=== PATIENT | female | born 1955 | race American Indian/Alaskan Native ===

== ENCOUNTER 2018-07-29 07:59 | Outpatient (CLI) | payer SELFPAY ==
--- NOTE | 2018-07-29 10:01 | Mammography Report ---
Right mammogram colon compared to 04/22/16. CAD study utilized. Findings: Predominance adipose tissue bilaterally. No mass or microcalcification. Normal axilla. Impression: Benign findings. Annual followup recommended. BI-RADS CATEGORY: 2 = Benign ACR BI-RADS MAMMOGRAPHIC CODES: 0 = Needs additional imaging evaluation; 1 = Negative; 2 = Benign; 3 = Probably benign; 4 = Suspicious; 5 = Malignant; 6 = Known biopsy-proven malignancy COMMENT: 1. Dense breast tissue, i.e., adenosis, fibrocystic changes, etc., may obscure an underlying neoplasm. 2. Approximately 10% of cancers are not detected with mammography. 3. A negative mammography report should not delay biopsy if a clinically suspicious mass is present.
== END 2018-07-29 08:00 | disposition home or self-care (01) ==
LOC: SPVWC 07:59
PROVIDERS: ATTEND Internal Medicine
DX: Z12.31 Encounter for screening mammogram for malignant neoplasm of breast (principal)

== ENCOUNTER 2019-07-05 12:24 | Outpatient (CLI) | payer MEDICARE ==
--- NOTE | 2019-07-05 13:43 | Mammography Report ---
DIGITAL DIAGNOSTIC MAMMOGRAM WITHOUT CAD, -- 07/05/2019 INDICATION: Recall for asymmetry. TECHNIQUE: Digital right mammographic imaging was performed. This examination was interpreted with the benefit of Computer-aided Detection analysis. COMPARISON: 06/22/2019 FINDINGS: Breast Density: There are scattered fibroglandular densities. Additional right mammographic views were performed and are negative. IMPRESSION: No mammographic evidence of malignancy. Follow up recommendation: Routine yearly BI-RADS Category 1: Negative. A "normal" or negative report should not discourage follow up or biopsy of a clinically significant f inding. A written summary of these findings will be mailed to the patient. The patient will be entered into a mammography reporting system which will generate a reminder letter for the patient's next appointmen t at the appropriate interval. According to the [employer], yearly mammograms are recommended starting at age 40 and continuing as long as a woman is in good health. Breast MRI is recommended for women with an rajan roximately 20-25% or greater lifetime risk of breast cancer, including women with a strong family his tory of breast or ovarian cancer and women who have been treated for Hodgkin's disease. Signer Name: Per Frias MD Signed: 07/05/2019 1:38 PM Workstation Name: [id number]
== END 2019-07-05 12:25 | disposition home or self-care (01) ==
LOC: MAMMO 12:24
PROVIDERS: ATTEND Obstetrics & Gynecology
DX: C50.919 Malignant neoplasm of unspecified site of unspecified female breast (principal); N64.89 Other specified disorders of breast; R92.8 Other abnormal and inconclusive findings on diagnostic imaging of breast

== ENCOUNTER 2021-07-26 14:06 | Outpatient (CLI) | payer MEDICARE ==
--- NOTE | 2021-07-27 11:33 | Mammography Report ---
DIGITAL SCREENING MAMMOGRAM WITH CAD, 07/26/2021 CLINICAL INFORMATION / INDICATION: Routine screening mammography. SCREENING MAMMO Z12.31 TECHNIQUE: Digital right 2D mammography was obtained in the craniocaudal and mediolateral oblique pr ojections. This examination was interpreted with the benefit of Computer-Aided Detection analysis. COMPARISON: 06/26/2020 FINDINGS: Breast Density: There are scattered areas of fibroglandular density. No dominant mass, suspicious calcifications, or architectural distortion in either breast. IMPRESSION: No mammographic evidence of malignancy. Follow up recommendation: Routine yearly BI-RADS Category 1: Negative. A "normal" or negative report should not discourage follow up or biopsy of a clinically significant f inding. A written summary of these findings will be mailed to the patient. The patient will be entered into a mammography reporting system which will generate a reminder letter for the patient's next appointmen t at the appropriate interval. The [employer] recommends yearly mammograms starting at age 40 and continuing as l anthony as a woman is in good health. Breast MRI is recommended for women with an approximate 20-25% or greater lifetime risk of breast cancer, including women with a strong family history of breast or ova selina cancer or who have been treated for Hodgkin's disease. Signer Name: Isak Page MD Signed: 07/27/2021 11:28 AM Workstation Name: [id number]
== END 2021-07-26 14:07 | disposition home or self-care (01) ==
LOC: SPVWC 14:06
PROVIDERS: ATTEND Internal Medicine
DX: Z12.31 Encounter for screening mammogram for malignant neoplasm of breast (principal)